=== PATIENT | female | born 1990 | race American Indian/Alaskan Native ===

== ENCOUNTER 2021-12-05 14:15 | Emergency (ER) | payer SELFPAY ==
[2021-12-05 15:35] LABS: HCG Qualitative,Urine Negative (Negative)
[2021-12-05 15:42] LABS: Bilirubin,Urine NEG (Negative); Blood,Urine MOD (Negative); Color,Urine Yellow (Yellow); Mucus,Urine 1+ /HPF; Protein,Urine <15 mg/dL mg/dL (Negative); Urobilinogen,Urine < 2.0 mg/dL (<2.0)
[2021-12-05 16:33] LABS: Basophils # (Auto) 0.1 K/mm3 (0.0-0.1); Eosinophils # (Auto) 0.1 K/mm3 (0.0-0.4); Eosinophils % (Auto) 3.6 % (0.0-4.3); Lymphocytes # (Auto) 1.6 K/mm3 (1.2-5.4); Lymphocytes % (Auto) 38.7 % (13.4-35.0); Mean Corpuscular HGB Conc 29 % (30-34); Monocytes # (Auto) 0.5 K/mm3 (0.0-0.8); Monocytes % (Auto) 11.2 % (0.0-7.3); Platelet Count 210 K/mm3 (140-440)
[2021-12-05 16:34] LABS: Hematocrit 24.5 % (30.3-42.9); Mean Corpuscular Volume 66 fl (79-97)
[2021-12-05 16:35] LABS: Red Cell Distribution Width 20.1 % (13.2-15.2)
[2021-12-05 16:58] LABS: Alanine Aminotransferase 17 units/L (7-56); Blood Urea Nitrogen 15 mg/dL (7-17); Calcium 8.9 mg/dL (8.4-10.2); Hemolysis Index 0
[2021-12-05 17:07] LABS: BUN/Creatinine Ratio 21
[2021-12-05] MEDS ORDERED: METOCLOPRAMIDE 10 MG/2 ML INJ IV ONE (17:18)
[2021-12-05] MEDS ORDERED: diphenhydrAMINE 50 MG/ML VIAL IV ONE (17:18)
[2021-12-05] MEDS ORDERED: SODIUM CHLORIDE 0.9% 1000 ML 1,000 ML IV ONE (17:18)
--- NOTE | 2021-12-05 17:18 | Emergency Department Report ---
<RADHA MARTINEZ - Last Filed: 12/05/21 17:14> ED Abdominal Pain HPI - General Chief Complaint: Abdominal Pain Stated Complaint: STOMACH PAIN Time Seen by Provider: 12/05/21 15:43 Source: patient Mode of arrival: Ambulatory Limitations: No Limitations - History of Present Illness Initial Comments: This is a 31-year-old female nontoxic, well nourished in appearance, no acute signs of distress presents to the ED with c/o of abnormal menstrual cycle, dysuria, increased weight gain, and abdominal pains x several months. Patient stated the last few months she has been getting abdominal distention. Patient stated she gets her menstrual cycle monthly for are irregular. Patient denies any nausea or vomiting. Patient describes abdominal pain as cramping and aching with level of 8/10 diffuse. Patient denies chest pain, short of breath, fever, hemoptysis, blood in stool, chills, headache, stiff neck, numbness or tingling. Patient denies any diarrhea or constipation. Denies any blood in stool. Patient denies any recent travels. Patient denies any allergies. MD Complaint: abdominal pain -: month(s) Location: diffuse Radiation: none Migration to: no migration Severity: mild Severity scale (0 -10): 8 Quality: cramping, aching Consistency: constant Improves With: nothing Worsens With: nothing Associated Symptoms: dysuria. denies: nausea, vomiting, diarrhea, fever, chills, constipation, hematemesis, hematochezia, melena, hematuria, anorexia, syncope - Related Data Previous Rx's Medication Instructions Recorded Last Taken Type Naproxen [Naprosyn] 500 mg PO BID #14 tab 12/05/21 Unknown Rx Allergies Allergy/AdvReac Type Severity Reaction Status Date / Time No Known Allergies Allergy Verified 12/05/21 14:57 ED Review of Systems Comment: All other systems reviewed and negative Constitutional: denies: chills, fever Eyes: denies: eye pain, eye discharge, vision change ENT: denies: ear pain, throat pain Respiratory: denies: cough, shortness of breath, wheezing Cardiovascular: denies: chest pain, palpitations Endocrine: no symptoms reported Gastrointestinal: abdominal pain. denies: nausea, vomiting, diarrhea, constipation, hematemesis, melena, hematochezia Genitourinary: dysuria, abnormal menses. denies: urgency, frequency, hematuria, discharge, dyspareunia Musculoskeletal: denies: back pain, joint swelling, arthralgia Skin: denies: rash, lesions Neurological: denies: headache, weakness, paresthesias Psychiatric: denies: anxiety, depression Hematological/Lymphatic: denies: easy bleeding, easy bruising ED Past Medical Hx - Surgical History Additional Surgical History: hernia repair - Social History Smoking Status: Current Every Day Smoker Substance Use Type: Marijuana - Medications Home Medications: Home Medications Medication Instructions Recorded Confirmed Last Taken Type Naproxen [Naprosyn] 500 mg PO BID #14 tab 12/05/21 Unknown Rx ED Physical Exam - General Limitations: No Limitations General appearance: alert, in no apparent distress - Head Head exam: Present: atraumatic, normocephalic - Eye Eye exam: Present: normal appearance - Neck Neck exam: Present: normal inspection, full ROM. Absent: lymphadenopathy - Respiratory Respiratory exam: Present: normal lung sounds bilaterally. Absent: respiratory distress, wheezes, rales, rhonchi, stridor, chest wall tenderness, accessory muscle use, decreased breath sounds, prolonged expiratory - Cardiovascular Cardiovascular Exam: Present: regular rate, normal rhythm, normal heart sounds. Absent: bradycardia, tachycardia, irregular rhythm, systolic murmur, diastolic murmur, rubs, gallop - GI/Abdominal GI/Abdominal exam: Present: distended, tenderness, normal bowel sounds, mass. Absent: guarding, rebound, rigid, diminished bowel sounds - Extremities Exam Extremities exam: Present: full ROM - Back Exam Back exam: Present: normal inspection, full ROM. Absent: tenderness, CVA tenderness (R), CVA tenderness (L), muscle spasm, paraspinal tenderness, vertebral tenderness, rash noted - Neurological Exam Neurological exam: Present: alert, oriented X3, normal gait - Psychiatric Psychiatric exam: Present: normal affect, normal mood - Skin Skin exam: Present: warm, dry, intact, normal color. Absent: rash ED Course - Reevaluation(s) Reevaluation #1: 12/05/21 17:18 Patient is speaking in full sentences with no signs of distress noted. Reevaluation #2: 12/05/21 17:22 At this time patient signed out to Augustus Pritchett WORD PROCESSING OPERATOR for further evaluation, treatment and appropriate disposition. ED Medical Decision Making - Lab Data Result diagrams: 12/05/21 16:12 12/05/21 16:12 Lab Results 12/05/21 12/05/21 12/05/21 Range/Units 16:12 16:12 16:12 WBC 4.1 L (4.5-11.0) K/mm3 RBC 3.70 (3.65-5.03) M/mm3 Hgb 7.0 L (10.1-14.3) gm/dl Hct 24.5 L (30.3-42.9) % MCV 66 L (79-97) fl MCH 19 L (28-32) pg MCHC 29 L (30-34) % RDW 20.1 H (13.2-15.2) % Plt Count 210 (140-440) K/mm3 Lymph % (Auto) 38.7 H (13.4-35.0) % [place] % (Auto) 11.2 H (0.0-7.3) % Eos % (Auto) 3.6 (0.0-4.3) % Baso % (Auto) 3.0 H (0.0-1.8) % Lymph # (Auto) 1.6 (1.2-5.4) K/mm3 [place] # (Auto) 0.5 (0.0-0.8) K/mm3 Eos # (Auto) 0.1 (0.0-0.4) K/mm3 Baso # (Auto) 0.1 (0.0-0.1) K/mm3 Seg Neutrophils % 43.5 (40.0-70.0) % Seg Neutrophils # 1.8 (1.8-7.7) K/mm3 Sodium 137 (137-145) mmol/L Potassium 4.2 (3.6-5.0) mmol/L Chloride 102.8 (98-107) mmol/L Carbon Dioxide 23 (22-30) mmol/L Anion Gap 15 mmol/L BUN 15 (7-17) mg/dL Creatinine 0.7 (0.6-1.2) mg/dL Estimated GFR > 60 ml/min BUN/Creatinine Ratio 21 % Glucose 87 (65-100) mg/dL Calcium 8.9 (8.4-10.2) mg/dL Total Bilirubin 0.20 (0.1-1.2) mg/dL AST 17 (5-40) units/L ALT 17 (7-56) units/L Alkaline Phosphatase 53 (35-129) units/L Total Protein 6.2 L (6.3-8.2) g/dL Albumin 4.0 (3.9-5) g/dL Albumin/Globulin Ratio 1.8 % Lipase 36 (13-60) units/L HCG, Quant < 2 (0-4) mIU/mL Urine Color (Yellow) Urine Turbidity (Clear) Urine pH (5.0-7.0) Ur Specific [place] (1.003-1.030) Urine Protein (Negative) mg/dL Urine Glucose (UA) (Negative) mg/dL Urine Ketones (Negative) mg/dL Urine Blood (Negative) Urine Nitrite (Negative) Ur Reducing Substances Urine Bilirubin (Negative) Urine Ictotest Urine Urobilinogen (<2.0) mg/dL Ur Leukocyte Esterase (Negative) Urine WBC (Auto) (0.0-6.0) /HPF Urine RBC (Auto) (0.0-6.0) /HPF U Epithel Cells (Auto) (0-13.0) /HPF Urine Mucus /HPF Urine HCG, Qual (Negative) 12/05/21 Range/Units Unknown WBC (4.5-11.0) K/mm3 RBC (3.65-5.03) M/mm3 Hgb (10.1-14.3) gm/dl Hct (30.3-42.9) % MCV (79-97) fl MCH (28-32) pg MCHC (30-34) % RDW (13.2-15.2) % Plt Count (140-440) K/mm3 Lymph % (Auto) (13.4-35.0) % [place] % (Auto) (0.0-7.3) % Eos % (Auto) (0.0-4.3) % Baso % (Auto) (0.0-1.8) % Lymph # (Auto) (1.2-5.4) K/mm3 [place] # (Auto) (0.0-0.8) K/mm3 Eos # (Auto) (0.0-0.4) K/mm3 Baso # (Auto) (0.0-0.1) K/mm3 Seg Neutrophils % (40.0-70.0) % Seg Neutrophils # (1.8-7.7) K/mm3 Sodium (137-145) mmol/L Potassium (3.6-5.0) mmol/L Chloride (98-107) mmol/L Carbon Dioxide (22-30) mmol/L Anion Gap mmol/L BUN (7-17) mg/dL Creatinine (0.6-1.2) mg/dL Estimated GFR ml/min BUN/Creatinine Ratio % Glucose (65-100) mg/dL Calcium (8.4-10.2) mg/dL Total Bilirubin (0.1-1.2) mg/dL AST (5-40) units/L ALT (7-56) units/L Alkaline Phosphatase (35-129) units/L Total Protein (6.3-8.2) g/dL Albumin (3.9-5) g/dL Albumin/Globulin Ratio % Lipase (13-60) units/L HCG, Quant (0-4) mIU/mL Urine Color Yellow (Yellow) Urine Turbidity Clear (Clear) Urine pH 6.0 (5.0-7.0) Ur Specific [place] 1.018 (1.003-1.030) Urine Protein <15 mg/dl (Negative) mg/dL Urine Glucose (UA) Neg (Negative) mg/dL Urine Ketones Neg (Negative) mg/dL Urine Blood Mod (Negative) Urine Nitrite Neg (Negative) Ur Reducing Substances Not Reportable Urine Bilirubin Neg (Negative) Urine Ictotest Not Reportable Urine Urobilinogen < 2.0 (<2.0) mg/dL Ur Leukocyte Esterase Neg (Negative) Urine WBC (Auto) 1.0 (0.0-6.0) /HPF Urine RBC (Auto) 14.0 (0.0-6.0) /HPF U Epithel Cells (Auto) 1.0 (0-13.0) /HPF Urine Mucus 1+ /HPF Urine HCG, Qual Negative (Negative) - Medical Decision Making 31-year-old female that presents with abdominal distention and pain. Patient is stable and was examined by me. Labs has been obtained. CT has been ordered and pending. Normal saline and medication ordered. At this time patient signed out to Augustus Pritchett WORD PROCESSING OPERATOR for further evaluation, treatment and appropriate disposition. At time of sign out, the patient does not seem toxic or ill in appearance. No acute signs of distress noted. Vital signs stable. ED Disposition Clinical Impression: Fibroid uterus Qualifiers: Uterine leiomyoma location: unspecified location Qualified Code(s): D25.9 - Leiomyoma of uterus, unspecified Anemia Qualifiers: Anemia type: unspecified type Qualified Code(s): D64.9 - Anemia, unspecified Disposition: HOME / SELF CARE / HOMELESS Condition: Stable Instructions: Uterine Artery Embolization for Fibroids, Myomectomy, Uterine Fibroids, Udeu-vy-Lhla, Abdominal Pain (ED) Additional Instructions: Take medication as prescribed. Start taking [id number]-[id number] iron supplements. Follow-up with PSYCHIATRIC ATTENDANT for further evaluation and management. Return to the emergency department as needed. Prescriptions: Naproxen [Naprosyn] 500 mg PO BID #14 tab Referrals: LUZ CONNELL MD [Primary Care Provider] - 3-5 Days [facility] [Provider Group] - 3-5 Days [facility] [Provider Group] - 3-5 Days BENJY APPLE MD [Staff Physician] - 3-5 Days Forms: Work/School Release Form(ED) <MICHELLE LUI - Last Filed: 12/05/21 20:48> ED Review of Systems ROS: Stated complaint: STOMACH PAIN Other details as noted in HPI ED Course Vital Signs 12/05/21 12/05/21 14:51 20:14 Temperature 98.2 F Pulse Rate 74 72 Respiratory 16 12 Rate Blood Pressure 121/88 Blood Pressure 118/82 [Left] O2 Sat by Pulse 100 100 Oximetry ED Medical Decision Making - Lab Data Result diagrams: 12/05/21 16:12 12/05/21 16:12 - Radiology Data Radiology results: report reviewed, image reviewed CT abdomen and pelvis with contrast: FINDINGS: Lung bases are clear. Liver, gallbladder, pancreas, spleen, and adrenals demonstrate no acute abnormality. There is a left renal cyst. Kidneys enhance symmetrically. No hydronephrosis. Bladder is unremarkable. Massive uterus with multiple complex mass lesions, some of which are calcified, compatible with severe uterine fibroid disease. This includes a large exophytic fibroid arising from the superior fundus measuring 15.6 x 10.2 x 9.6 cm. Overall, the uterus measures 16.7 x 11.8 cm transaxially and 26 cm in craniocaudal dimension. No discrete adnexal mass. There is no evidence of localized bowel inflammation or obstruction. The appendix is visualized and is normal. No free fluid or adenopathy. No acute osseous findings. IMPRESSION: 1. Massive fibroid uterus, measuring 26 cm in craniocaudal dimension. 2. No acute findings identified in the abdomen or pelvis. Kidneys and bladder appear unremarkable. 3. Incidental findings detailed above. - Medical Decision Making CT noted to be positive for massive fibroid uterus. Patient states that she is currently on her cycle, and has been for more than 10 days and very heavy. She states that since she started having these complaints a few months ago she has noticed that her period has been consistently longer and heavier which is likely the cause of her low H&H. Patient denies weakness, dizziness, and lightheadedness. Patient will be discharged home with 7-day course of naproxen to treat abdominal pain and stop uterine bleeding. She is advised to start taking [id number] iron supplements and to follow-up with PSYCHIATRIC ATTENDANT for further evaluation and management. She is advised to return to the emergency department for any concerning symptoms. She verbalizes understanding of and agreement with plan of care. Patient appears to be in no acute distress, nontoxic, and not ill-appearing. Critical care attestation.: If time is entered above; I have spent that time in minutes in the direct care of this critically ill patient, excluding procedure time. ED Disposition Is pt being admited?: No Does the pt Need Aspirin: No Time of Disposition: 19:58
--- NOTE | 2021-12-05 19:49 | Cat Scan Report ---
CT abdomen pelvis w con INDICATION / CLINICAL INFORMATION: Pt complains of dysuria, and abdominal pain. TECHNIQUE: Axial CT images were obtained through the abdomen and pelvis after IV contrast. All CT sc ans at this location are performed using CT dose reduction for ALARA by means of automated exposure c ontrol. COMPARISON: None available. FINDINGS: Lung bases are clear. Liver, gallbladder, pancreas, spleen, and adrenals demonstrate no acute abnorma lity. There is a left renal cyst. Kidneys enhance symmetrically. No hydronephrosis. Bladder is unrema rkable. Massive uterus with multiple complex mass lesions, some of which are calcified, compatible with sever e uterine fibroid disease. This includes a large exophytic fibroid arising from the superior fundus m easuring 15.6 x 10.2 x 9.6 cm. Overall, the uterus measures 16.7 x 11.8 cm transaxially and 26 cm in craniocaudal dimension. No discrete adnexal mass. There is no evidence of localized bowel inflammation or obstruction. The appendix is visualized and i s normal. No free fluid or adenopathy. No acute osseous findings. IMPRESSION: 1. Massive fibroid uterus, measuring 26 cm in craniocaudal dimension. 2. No acute findings identified in the abdomen or pelvis. Kidneys and bladder appear unremarkable. 3. Incidental findings detailed above. Signer Name: Nabor Angela MD Signed: 12/05/2021 7:44 PM Workstation Name: [id number]
[2021-12-05 20:15] VITALS: BP 118/82
== END 2021-12-05 20:15 | disposition home or self-care (01) ==
LOC: ED 14:15
DX: D25.9 Leiomyoma of uterus, unspecified (principal); D64.9 Anemia, unspecified; Z79.899 Other long term (current) drug therapy; F17.200 Nicotine dependence, unspecified, uncomplicated
CPT/HCPCS: 36415; 74177; 80053; 81001; 81025; 83690; 84702; 85025; 96361; 96374; 96375; 99284; J1200; J2765; J7030; Q9967